=== PATIENT | female | born 2000 | race Two or more races ===

== ENCOUNTER 2022-03-04 17:32 | Inpatient (IN) | payer OTHER ==
[~2022-03-04] VITALS: Ht 152.4 cm; Wt 1.4 kg
[2022-03-05] MEDS ORDERED: PRENATAL + DHA1 EAC1 PO (10:45)
[2022-03-09] MEDS ORDERED: PERCOCET 5-3251 EACH PO (13:13)
[2022-03-09] MEDS ORDERED: SURFAK240 M1 PO (13:13)
== END 2022-03-09 17:29 | disposition home or self-care (01) | DRG 786 ==
LOC: LDR 17:32 → OB/GYN 03-08 00:11
PROVIDERS: ADMIT Specialist; ATTEND Specialist
PROC: 4A1HXCZ Monitoring of Products of Conception, Cardiac Rate, External Approach (ICD-10-PCS; 2022-03-04)
PROC: BY4FZZZ Ultrasonography of Third Trimester, Single Fetus (ICD-10-PCS; 2022-03-04)
PROC: BU4CZZZ Ultrasonography of Uterus and Ovaries (ICD-10-PCS; 2022-03-04)
PROC: 10D00Z1 Extraction of Products of Conception, Low, Open Approach (ICD-10-PCS; principal; 2022-03-06 21:00)
DX: O14.13 Severe pre-eclampsia, third trimester (principal); O36.5930 Maternal care for other known or suspected poor fetal growth, third trimester, not applicable or unspecified; O60.14X0 Preterm labor third trimester with preterm delivery third trimester, not applicable or unspecified; O60.03 Preterm labor without delivery, third trimester; O14.93 Unspecified pre-eclampsia, third trimester; O26.843 Uterine size-date discrepancy, third trimester; O36.8130 Decreased fetal movements, third trimester, not applicable or unspecified; O99.213 Obesity complicating pregnancy, third trimester; E66.8 Other obesity; Z3A.33 33 weeks gestation of pregnancy; Z20.822 Contact with and (suspected) exposure to COVID-19; Z37.0 Single live birth